=== PATIENT | female | born 2000 | race African-American/Black ===

== ENCOUNTER 2024-05-06 10:16 | Emergency (ER) | payer SELFPAY ==
[2024-05-06 10:25] VITALS: BP 117/76; PULSE 100; RESP 24; TEMP 98.7; BMI 29.7
[2024-05-06] MEDS ORDERED: ALBUTEROL SO4 2.5/IPRATROPIUM 0.5 INH SOL 3 ML VIAL.NEB. NEB ONE (10:46)
[2024-05-06] MEDS ORDERED: DEXAMETHASONE SOD PHOSPHATE 10 MG/1 ML VIAL ONE (10:46)
[2024-05-06] MEDS ORDERED: DEXAMETHASONE 4 MG TABLET (FP) ONE (10:47)
[2024-05-06] MEDS: ALBUTEROL SO4 2.5/IPRATROPIUM 0.5 INH SOL 3 ML VIAL.NEB. NEB ONE (10:54)
[2024-05-06] MEDS: DEXAMETHASONE 4 MG TABLET (FP) PO ONE (10:54)
[2024-05-06 12:19] LABS: HIV INTERPRETATION NEGATIVE (NEGATIVE)
== END 2024-05-06 12:34 | disposition home or self-care (01) ==
LOC: JER 10:16
PROC: 3E0F7GC Introduction of Other Therapeutic Substance into Respiratory Tract, Via Natural or Artificial Opening (ICD-10-PCS; principal; 2024-05-06)
DX: R05.9 Cough, unspecified (principal); R06.2 Wheezing; J40 Bronchitis, not specified as acute or chronic; R06.02 Shortness of breath; J02.9 Acute pharyngitis, unspecified; R50.9 Fever, unspecified; Z20.822 Contact with and (suspected) exposure to COVID-19
CPT/HCPCS: 0241U-QW; 36415; 71046-TC-FY; 84703; 86803; 87389; 99284-25

== ENCOUNTER 2024-06-03 09:54 | Emergency (ER) | payer SELFPAY ==
[2024-06-03] MEDS ORDERED: ALBUTEROL SO4 2.5/IPRATROPIUM 0.5 INH SOL 3 ML VIAL.NEB. NEB ONE (10:09)
[2024-06-03] MEDS ORDERED: predniSONE 20 MG TABLET (UD) ONE (10:09)
[2024-06-03] MEDS: predniSONE 20 MG TABLET (UD) PO ONE (10:13)
[2024-06-03] MEDS: ALBUTEROL SO4 2.5/IPRATROPIUM 0.5 INH SOL 3 ML VIAL.NEB. NEB SCH (10:13)
[2024-06-03 13:10] VITALS: BP 111/77; PULSE 85; RESP 20; TEMP 98.5; BMI 30.5
== END 2024-06-03 11:47 | disposition home or self-care (01) ==
LOC: JERFT 09:54
PROC: 3E0F7GC Introduction of Other Therapeutic Substance into Respiratory Tract, Via Natural or Artificial Opening (ICD-10-PCS; principal; 2024-06-03)
DX: R09.81 Nasal congestion (principal); J06.9 Acute upper respiratory infection, unspecified; R05.9 Cough, unspecified; R50.9 Fever, unspecified; M79.10 Myalgia, unspecified site; Z20.822 Contact with and (suspected) exposure to COVID-19
CPT/HCPCS: 0241U-QW; 99283-25

== ENCOUNTER 2024-08-15 09:40 | Emergency (ER) | payer OTHER ==
[2024-08-15 10:33] VITALS: BMI 32.3
[2024-08-15 12:28] LABS: BASO % 0.7 % (0-2.0); EOS % 6.3 % (0-4.5); MCH 29.6 pg (25.7-33.7); MCHC 32.4 g/dl (32.0-36.0); MEAN CELL VOLUME 91.4 fl (80-96); MEAN PLT VOLUME 8.8 fl (7.5-11.1); MONO % 6.4 % (3.8-10.2); NEUT % 57.6 % (42.8-82.8); PLATELET COUNT 329 10^3/uL (134-434); RBC 4.38 M/mm3 (3.60-5.2); RDW 13.4 % (11.6-15.6); WHITE BLOOD COUNT 10.8 K/mm3 (4.0-10.0)
[2024-08-15 12:30] LABS: EPI CELLS >36 /uL (0-25.1); HYALINE CASTS 0 /uL (0-3.1); URINE APPEARANCE CLOUDY; URINE BACTERIA 889 /uL (0-1359); URINE BILIRUBIN 1+ (NEGATIVE); URINE COLOR DK YELLOW; URINE GLUCOSE (UA) NEGATIVE (NEGATIVE); URINE KETONE TRACE (NEGATIVE); URINE LEUK ESTERASE 3+ (NEGATIVE); URINE NITRITE NEGATIVE (NEGATIVE); URINE PROTEIN 2+ (NEGATIVE); URINE RBC 1663 /uL (0-23.9); URINE UROBILINOGEN 0.2 mg/dL (0.2-1.0); URINE WBC 2264 /uL (0-25.8)
[2024-08-15 12:54] LABS: POTASSIUM 4.2 mmol/L (3.5-5.1)
[2024-08-15 12:59] LABS: ALBUMIN 3.7 g/dl (3.4-5.0); CALCIUM 9.2 mg/dL (8.5-10.1)
[2024-08-15 13:00] LABS: BLOOD UREA NITROGEN 9.2 mg/dL (7-18)
[2024-08-15 13:03] LABS: CREATININE 0.8 mg/dL (0.55-1.3)
[2024-08-15 13:04] LABS: BILIRUBIN,TOTAL 0.9 mg/dL (0.2-1); TOT PROT 7.3 g/dl (6.4-8.2)
[2024-08-15 13:34] LABS: EPI CELLS 29 /uL (0-25.1); HYALINE CASTS 1 /uL (0-3.1); URINE APPEARANCE CLOUDY; URINE BACTERIA 520 /uL (0-1359); URINE BILIRUBIN 1+ (NEGATIVE); URINE COLOR DK YELLOW; URINE GLUCOSE (UA) NEGATIVE (NEGATIVE); URINE KETONE TRACE (NEGATIVE); URINE LEUK ESTERASE 2+ (NEGATIVE); URINE NITRITE NEGATIVE (NEGATIVE); URINE PROTEIN 2+ (NEGATIVE); URINE UROBILINOGEN 0.2 mg/dL (0.2-1.0); URINE WBC 1448 /uL (0-25.8)
[2024-08-15 14:11] LABS: URINE RBC 1668 /uL (0-23.9)
[2024-08-15 16:53] VITALS: BP 104/59; PULSE 83; RESP 19; TEMP 98
== END 2024-08-15 16:44 | disposition home or self-care (01) ==
LOC: JER 09:40
DX: O20.0 Threatened abortion (principal); O23.11 Infections of bladder in pregnancy, first trimester; O26.891 Other specified pregnancy related conditions, first trimester; R10.30 Lower abdominal pain, unspecified; M54.50 Low back pain, unspecified; O21.9 Vomiting of pregnancy, unspecified; Z3A.01 Less than 8 weeks gestation of pregnancy
CPT/HCPCS: 36415; 76817-TC; 80053; 81003; 84702; 85025; 86850; 86900; 86901; 87086; 87186; 87491; 87591; 99284-25